=== PATIENT | male | born 1955 | race Caucasian/White ===

== ENCOUNTER 2017-04-06 12:53 | Emergency (ER) | payer SELFPAY ==
[~2017-04-06] VITALS: Ht 177.8 cm; Wt 100.0 kg
[2017-04-06 12:54] VITALS: BP 160/86; PULSE 76; RESP 20; TEMP 97.5; O2SAT 93
[2017-04-06] MEDS ORDERED: IBUP800T23 PO (13:51)
[2017-04-06] MEDS ORDERED: CIPR500T2 PO (13:51)
[2017-04-06] MEDS ORDERED: CIPR0.3S RIGHT EAR (13:51)
--- NOTE | 2017-04-06 13:52 | PD ---
HPI Chief Complaint: ENT Complaint Time Seen by Provider: 13:49 Travel History International Travel<30 days: No Contact w/Intl Traveler<30days: No Traveled to known affect area: No History of Present Illness HPI 61-year-old male presents to the emergency Department with complaint of right ear pain and swelling 2 days. Said he cleaned out his ear with a Q-tip yesterday and had onset of symptoms. Denies fever, vomiting, nasal congestion, sore throat, cough. Denies swimming. Has taken ibuprofen for symptom management. Has history of COPD and uses home oxygen occasionally for low oxygen; says he has not used the oxygen for quite a while. His oxygen saturation is 93% in the ER and he denies shortness of breath or chest pain. Has history of tobacco use, but denies currently.. Symptoms are mild in severity. No known allergies. Has no other medical complaints. No other modifying factors or associated signs or symptoms. PFSH Past Medical History Diabetes: Yes Respiratory: Yes (COPD) Social History Tobacco Use: No Allergies-Medications (Allergen,Severity, Reaction): Coded Allergies: No Known Allergies (Verified Allergy, Unknown, 04/06/17) Reported Meds & Prescriptions Reported Meds & Active Scripts Active Ibuprofen 800 Mg Tab 800 Mg PO Q8H PRN Ciprofloxacin (Ciprofloxacin HCl) 500 Mg Tab 500 Mg PO BID 10 Days Ciprodex Otic Drops (Ciprofloxacin-Dexamethasone Otic Drops) 0.3-0.1% Susp 4 Drop RIGHT EAR BID 7 Days Review of Systems Except as stated in HPI: all other systems reviewed are Neg Physical Exam Narrative GENERAL: Well-nourished, well-developed male patient, in no acute distress; afebrile, nontoxic-appearing SKIN: Warm and dry. No rash. HEAD: Atraumatic. Normocephalic. EYES: Pupils equal and round. No scleral icterus. No injection or drainage. EARS: Right pinna and tragus are edematous, mildly erythematous, and with tenderness on palpation; right external canal is edematous and I'm unable to visualize the tympanic membrane; no drainage noted. Left pinnae and external canal appear within normal limits. Left tympanic membrane without erythema, loss of landmarks, and without dullness; without perforation. ENT: Mucosa pink and moist. Oral Pharynx without erythema; without edema or exudates. No uvular edema. No uvular, palatal, or tonsillar deviation. Airway patent. NECK: Trachea midline. No lymphadenopathy. CARDIOVASCULAR: Regular rate and rhythm. No murmur appreciated. RESPIRATORY: No accessory muscle use. Lungs sounds clear and equal bilaterally. No retractions or tachypnea. GASTROINTESTINAL: Rounded. MUSCULOSKELETAL: No obvious deformities. No clubbing. No cyanosis. No edema. NEUROLOGICAL: Awake and alert. Oriented 3. No obvious cranial nerve deficits. Motor grossly within normal limits. Normal speech. Moves all extremities. 5/5 strength to all extremities. PSYCHIATRIC: Appropriate mood and affect; insight and judgment normal. Data Data Last Documented VS Vital Signs Date Time Temp Pulse Resp B/P (MAP) Pulse Ox O2 Delivery O2 Flow Rate FiO2 04/06/17 12:54 97.5 76 20 160/86 (110) 93 Room Air [facility] Medical Decision Making Medical Screen Exam Complete: Yes Emergency Medical Condition: Yes Medical Record Reviewed: Yes Differential Diagnosis Otitis media, otitis externa, cerumen impaction, foreign body Narrative Course 61-year-old male physical exam consistent with right otitis externa. The outer ear is also edematous and mildly erythematous. Ear wick placed. Patient tolerated well. Instructed patient to remove the wick in the next 48 hours or earlier. The patient has history of COPD and is oxygen saturation is 93% on room air in the ER. Patient reports using home oxygen occasionally for low oxygen levels. He reports not using the oxygen for a while now.. He denies shortness of breath or chest pain at this time. He is in no acute distress and without retractions or tachypnea. Ciprodex, oral ciprofloxacin, ibuprofen prescribed for home. Instructed patient to follow up with primary care provider. Patient verbalizes understanding and agreement with treatment plan. Patient is medically cleared and stable for discharge. Discussed reasons to return to the emergency department. Patient agrees with treatment plan. The patients vital signs are stable and the patient is stable for outpatient follow- up and treatment. Patient discharged home, stable and in no acute distress. Diagnosis Primary Impression: Right otitis externa Qualified Codes: H60.91 - Unspecified otitis externa, right ear Referrals: Primary Care Physician Patient Instructions: General Instructions, Otitis Externa (ED) Additional Instructions: Take antibiotics as prescribed and complete full course Ibuprofen or Tylenol as directed and as needed to reduce pain and fever [id number] antihistamines or decongestants as directed and as needed for symptom management Avoid getting water in the ears Do not put anything in the ears; including Q-tips Remove earwick in 48 hours or earlier Follow-up with primary care provider Return to the emergency department immediately with worsening of symptoms Med/Other Pt SpecificInfo: Prescription(s) given Scripts Ibuprofen (Ibuprofen) 800 Mg Tab 800 MG PO Q8H Y for PAIN SCALE 1 TO 10, #20 TAB 0 Refills Prov: Mary Stubbs 04/06/17 Ciprofloxacin (Ciprofloxacin) 500 Mg Tab 500 MG PO BID for Infection for 10 Days, TAB 0 Refills Prov: Mary Stubbs 04/06/17 Ciprofloxacin-Dexamethasone Otic Drops (Ciprodex Otic Drops) 0.3-0.1% Susp 4 DROP RIGHT EAR BID for Infection for 7 Days, #1 BOTTLE 0 Refills Prov: Mary Stubbs 04/06/17 Disposition: 01 DISCHARGE HOME Condition: Stable Mary Stubbs Apr 06, 2017 13:51
== END 2017-04-06 14:24 | disposition home or self-care (01) ==
LOC: NEPK 12:53
DX: H60.91 Unspecified otitis externa, right ear (principal); E11.9 Type 2 diabetes mellitus without complications; J44.9 Chronic obstructive pulmonary disease, unspecified
CPT/HCPCS: 99284